=== PATIENT | male | born 1975 | race Caucasian/White ===

== ENCOUNTER 2021-01-26 18:54 | Emergency (ER) | payer OTHER, SELFPAY ==
[2021-01-26 19:00] VITALS: BP 125/96; PULSE 86; RESP 16; TEMP 37.1; O2SAT 100
--- NOTE | 2021-01-26 19:33 | ED.EYEPROB ---
HPI - Eye Problem General Chief complaint: Eye Problems Stated complaint: Foreign Body In Eye Time Seen by Provider: 01/26/21 19:15 Source: patient and RN notes reviewed Mode of arrival: ambulatory Limitations: clinical condition History of Present Illness HPI Narrative: Noman is a 45-year-old male patient who ambulated into the [facility]. Patient states states he was underneath a car and rest went into his left eye. Patient states the rash has been there for 3 days. He has attempted to remove it without success. Patient denies any vision changes. Just complains of pain to the left eye MD chief complaint: eye injury Related Data Home Medications Medication Instructions Recorded Confirmed No Home Medications 01/26/21 01/26/21 Allergies Allergy/AdvReac Type Severity Reaction Status Date / Time No Known Allergies Allergy Mild Verified 12/28/09 14:05 Review of Systems Review of Systems: CONSTITUTIONAL: Denies body aches, fever, chills, or sweats. EYES: Denies visual changes,+ redness, denies discharge. ENT: Denies rhinorrhea, congestion, sore throat, or otalgia. CARDIOVASCULAR: Denies chest pain, palpitations, or edema. RESPIRATORY: Denies cough or dyspnea. GASTROINTESTINAL: Denies abdominal pain, nausea, vomiting, or diarrhea. GENITOURINARY: Denies dysuria or hematuria. SKIN: Denies rash, itching, or wounds. MUSCULOSKELETAL: Denies back pain, joint pain, or myalgia. NEUROLOGIC: Denies headache, numbness, tingling, or weakness. PSYCH: Denies depression or anxiety. All systems reviewed & are unremarkable except as noted in HPI and below PMFSH Comments At time of signature, I have reviewed and agree with nursing past medical, surgical, social and family history unless otherwise noted. Please see nursing chart for further information. There is no relevant family history pertinent to the presenting complaint Exam Narrative: FGENERAL: Well-appearing, well-nourished, and in no acute distress. HEAD: Normocephalic, atraumatic. EYES: EOMI. left eye erythemic, watering, small FB at 9 oclock, ENT: Mucous membranes pink and moist. Nares clear. No rhinorrhea. TMs normal bilaterally. Throat normal. Uvula midline. NECK: Normal AROM. Supple. No lymphadenopathy. CHEST: No respiratory distress. Clear to auscultation. HEART: Regular rate and rhythm. No murmur appreciated. Normal peripheral pulses. ABDOMEN: Soft, nontender, nondistended, normal active bowel sounds. MUSCULOSKELETAL: No bony tenderness. EXTREMITIES: Normal range of motion. No edema. SKIN: Warm, dry, no rash. Capillary refill normal. Normal skin turgor. NEURO: No focal deficits. Alert and oriented x3. Gait steady. PSYCH: Normal affect. No signs of depression or anxiety. Course Vital Signs Vital signs: Vital Signs Temperature 37.1 C 01/26/21 19:00 Pulse Rate 86 01/26/21 19:00 Respiratory Rate 16 01/26/21 19:00 Blood Pressure 125/96 H 01/26/21 19:00 Pulse Oximetry 100 01/26/21 19:00 Temperature 37.1 C 01/26/21 19:00 Pulse Rate 86 01/26/21 19:00 Respiratory Rate 16 01/26/21 19:00 Blood Pressure 125/96 H 01/26/21 19:00 Pulse Oximetry 100 01/26/21 19:00 Reviewed Transfer Transfered to: [facility] Transportation: Other (private care) Transfer rationale: embedded rust in left eye; Accepting physician: Rubio Lozada comments: Allyson chirinos RN accepted patient and took report. Procedures FB Removal Eye Foreign Body #1: Foreign Body Removal Narrative: left eye was anesthetized with 1 drop of tetracaine and anesthesia was achieved. The eye was flushed with eye wash. Lid was inverted and examined. Moistened Qtip was used to sweep underneath the upper eyelid with no foreign bodies removed.. Foreign body located at 9 oclock. Unable to remove with Q-tip, rust chip is embedded. MDM - Eye Problem MDM Narrative Medical decision making narrative: Foreign body was located at 9:00. Patient states he h
== END 2021-01-26 19:40 | disposition short-term general hospital (02) ==
PROVIDERS: Emergency Provider Nurse Practitioner Family
DX: T15.92XA Foreign body on external eye, part unspecified, left eye, initial encounter (principal); X58.XXXA Exposure to other specified factors, initial encounter
CPT/HCPCS: 65205; 99212; A9270; G0463